=== PATIENT | female | born 1990 | race Hispanic/Latino ===

== ENCOUNTER 2019-06-11 12:47 | Emergency (ER) | payer SELFPAY ==
[2019-06-11 13:31] LABS: BASOPHILS % (AUTO) 0.7 % (0.0-5.0); EOSINOPHILS % (AUTO) 0.4 % (0.0-8.0); HEMATOCRIT 43.2 % (36-48); LYMPHOCYTES % (AUTO) 15.8 % (21.0-51.0); MEAN CORPUSCULAR HEMOGLOBIN 29.8 pg (27.0-33.0); MEAN CORPUSCULAR HGB CONC 32.2 g/dL (32.0-36.0); MEAN CORPUSCULAR VOLUME 92.5 fL (79-99); MONOCYTES % (AUTO) 3.7 % (3.0-13.0); NEUTROPHILS % (AUTO) 79.2 % (40.0-77.0); PLATELET COUNT (AUTO) 371 K/uL (130-400); RED BLOOD CELL COUNT(AUTO) 4.67 MIL/uL (4.00-5.50); RED CELL DISTRIBUTION WIDTH 12.9 % (11.0-15.5); WHITE BLOOD COUNT (AUTO) 10.1 K/uL (4.8-10.8)
[2019-06-11 13:36] LABS: CREATININE 0.8 mg/dL (0.5-1.5); POTASSIUM 3.7 mmol/L (3.5-5.1)
[2019-06-11 13:39] LABS: APPEARANCE,URINE Clear (CLEAR); BILIRUBIN,URINE Negative (NEGATIVE); COLOR,URINE Yellow (YELLOW); GLUCOSE, URINE (UA) Negative (NEGATIVE); KETONES,URINE Trace mg/dL (NEGATIVE); LEUKOCYTE ESTERASE ,URINE Trace (NEGATIVE); NITRATE,URINE Negative (NEGATIVE); OCCULT BLOOD,URINE Moderate (NEGATIVE); PROTEIN,URINE Negative (NEGATIVE)
[2019-06-11] MEDS ORDERED: KETOROLAC TROMETHAMINE 30MG/ML ONE (13:40)
[2019-06-11] MEDS ORDERED: ONDANSETRON HCL 4 MG/2 ML VIAL ONE (13:40)
[2019-06-11 13:42] LABS: HCG,QUAL RESULT NEGATIVE (NEGATIVE)
[2019-06-11] MEDS ORDERED: SODIUM CHLORIDE 0.9% 1000ML 1,000 ML IV ONE (13:42)
[2019-06-11 13:53] LABS: BACTERIA,URINE Rare /HPF (None Seen); SQUAMOUS EPITHELIAL CELL,UR Few /HPF (0-2); WBC,URINE 0-1 /HPF (0-1)
[2019-06-11] MEDS ORDERED: IOHEXOL-350 75 ML VIAL IV ONE (14:39)
== END 2019-06-11 15:40 | disposition home or self-care (01) ==
LOC: EDH 12:47
DX: R10.31 Right lower quadrant pain (principal); F41.9 Anxiety disorder, unspecified; Z79.899 Other long term (current) drug therapy
CPT/HCPCS: 36415; 74177; 76705; 76856; 80048; 81001; 81025; 85025; 96374; 96375; 99285; J1885; J2405; J7030; Q9967

== ENCOUNTER 2023-01-09 13:57 | Emergency (ER) | payer MEDICAID ==
[~2023-01-09] VITALS: Ht 152.4 cm; Wt 39.5 kg
[2023-01-09 15:00] VITALS: BP 114/64; PULSE 88; RESP 20; O2SAT 99
[2023-01-09] MEDS ORDERED: LACTATED RINGERS 1000ML 1,000 ML IV ONE (15:00)
== END 2023-01-09 15:48 | disposition left against medical advice (07) ==
LOC: EDH 13:57
DX: R25.2 Cramp and spasm (principal)